=== PATIENT | male | born 1980 | race African-American/Black ===

== ENCOUNTER 2018-05-20 08:51 | Emergency (ER) | payer MEDICAID ==
[~2018-05-20] VITALS: Ht 182.9 cm; Wt 131.5 kg
[2018-05-20] MEDS ORDERED: UNOBMED (09:02)
[2018-05-20 09:06] VITALS: BP 135/80
--- NOTE | 2018-05-20 09:35 | Emergency Room Report ---
History of Present Illness General Chief Complaint: Pain Source: Patient Present Illness HPI Patient is a 38-year-old male presented after increased right lower extremity pain. Patient denies any recent injuries. 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 He reports having increased pain to the posterior right thigh. He denies recent trauma. He reports having prior history of hypertension. Pain was described as a sharp pain. He is worse with standing position. He denies any back pain.Patient had onset of symptoms 1 day ago. Allergies: Coded Allergies: No Known Allergies (Unverified , 05/20/18) Patient History Past Medical History: see triage record Reviewed Nursing Documentation: PMH: Agreed; PSxH: Agreed Nursing Documentation-PMH Past Medical History: No History, Except For Hx Hypertension: Yes Review of Systems All Other Systems: negative except mentioned in HPI Physical Exam Vital Signs Date Time Temp Pulse Resp B/P (MAP) Pulse Ox O2 Delivery O2 Flow Rate FiO2 05/20/18 08:59 99.1 97 19 140/82 98 05/20/18 09:06 Room Air General Appearance: well appearing, no apparent distress, alert, GCS 15, obese Head: normocephalic, atraumatic Eyes: bilateral eye other - disconjugate gaze ENT: hearing grossly normal, normal voice Neck: full range of motion, supple Respiratory: no respiratory distress, speaking full sentences Cardiovascular #1: normal peripheral pulses, regular rate, rhythm, no edema Gastrointestinal: normal inspection, non tender, soft Musculoskeletal: no calf tenderness, other - tenderness to right hamstring without skin changes or significant swelling Neurologic: normal inspection, alert, oriented x3, responsive, normal gait, other - disconjugate gaze Psychiatric: normal inspection, mood/affect normal Skin: no rash Medical Decision Making Diagnostic Impression: Primary Impression: Hamstring muscle strain ER Course Patient presented for right-sided thigh pain. Differential diagnosis include was not limited to fracture, bone cyst, hamstring injury among others. Because of complexity of patient's case imaging studies were ordered. The duplex ultrasound of the right lower extremity showed no evidence of acute DVT. X-ray imaging of the right femur showed normal bony alignment without evident fracture patient is given prescription for pain indications. He is advised to follow-up with his primary care physician for further evaluation.. Last Vital Signs Date Time Temp Pulse Resp B/P (MAP) Pulse Ox O2 Delivery O2 Flow Rate FiO2 05/20/18 09:06 98.5 78 20 135/80 98 Room Air Status: improved Disposition: HOME, SELF-CARE Condition: Stable Scripts Ibuprofen* (MOTRIN*) 600 Mg Tablet 600 MG ORAL Q8H PRN for For Pain, #30 TAB 0 Refills Prov: Cornelio Rolon MD 05/20/18 Referrals: NON PHYSICIAN (PCP) Cornelio Rolon MD May 20, 2018 09:35
--- NOTE | 2018-05-20 10:34 | Diagnostic Imaging Report ---
EXAM: XR Right Femur, 2 Views CLINICAL HISTORY: PAIN TECHNIQUE: Frontal and lateral views of the right femur. COMPARISON: No relevant prior studies available. FINDINGS: Bones/joints: Unremarkable. No visible displaced fracture. No dislocation. No osseous erosions. Visualized joint spaces appear unremarkable. Soft tissues: Unremarkable. IMPRESSION: Unremarkable right femur x-rays.
--- NOTE | 2018-05-20 11:50 | Diagnostic Imaging Report ---
EXAM: US Duplex Right Lower Extremity Veins CLINICAL HISTORY: PAIN TECHNIQUE: Real-time duplex ultrasound scan of the right lower extremity veins integrating B-mode two-dimensional vascular structure, Doppler spectral analysis, color flow Doppler imaging and compression. COMPARISON: No relevant prior studies available. FINDINGS: Deep veins: Unremarkable. No DVT in the visualized common femoral, superficial femoral, or popliteal veins. The veins demonstrate normal color flow, are normally compressible, with normal phasic flow and/or augmentation response. Superficial veins: Unremarkable. No thrombus in the visualized great saphenous vein. Soft tissues: No popliteal cyst. IMPRESSION: No evidence of DVT in the visualized venous segments of the right lower extremity.
[2018-05-20] MEDS ORDERED: IBUPROFEN600 MG ORAL (11:58)
[2018-05-20 12:05] VITALS: BP 130/85
== END 2018-05-20 12:05 | disposition home or self-care (01) ==
LOC: EMR 09:25
DX: S76.311A Strain of muscle, fascia and tendon of the posterior muscle group at thigh level, right thigh, initial encounter (principal); X58.XXXA Exposure to other specified factors, initial encounter; Y92.512 Supermarket, store or market as the place of occurrence of the external cause; Y99.0 Civilian activity done for income or pay; I10 Essential (primary) hypertension
CPT/HCPCS: 93971; 99284

== ENCOUNTER 2018-05-22 10:29 | Emergency (ER) | payer MEDICAID ==
[~2018-05-22] VITALS: Ht 182.9 cm; Wt 136.1 kg
[~2018-05-22 10:29] MED LIST: IBUPROFEN600 MG ORAL; UNOBMED
--- NOTE | 2018-05-22 10:31 | NUR ---
ED Nurse Note: Pt came into the Er w/ complaints of back pain since Tuesday. Pt is rating the pain a 10/10. Non radiating. Pt denies trauma. Pt was here on Tuesday for rt leg pain and was given motrin as prescription. A + o x4. Skin warm to touch.
[2018-05-22 10:33] VITALS: BP 120/70
--- NOTE | 2018-05-22 10:51 | NUR ---
ED Nurse Note: Pt went for MRI.
--- NOTE | 2018-05-22 11:12 | Emergency Room Report ---
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 [employer] Reports that in the morning time on Tuesday he had increased discomfort to that area denies any loss of control of bowel or urination Denies any chest pain or shortness of breath denies any other fall or trauma Allergies: Coded Allergies: No Known Allergies (Unverified , 05/20/18) Patient History Past Medical History: see triage record Pertinent Family History: none Reviewed Nursing Documentation: PMH: Agreed; PSxH: Agreed Nursing Documentation-PMH Hx Hypertension: Yes Review of Systems All Other Systems: negative except mentioned in HPI Physical Exam Vital Signs Date Time Temp Pulse Resp B/P (MAP) Pulse Ox O2 Delivery O2 Flow Rate FiO2 05/22/18 10:32 98.2 99 18 121/69 95 Room Air Sp02 EP Interpretation: reviewed, normal General Appearance: no apparent distress Head: normocephalic, atraumatic Eyes: bilateral eye other - amblyopia ENT: normal pharynx Neck: supple Respiratory: lungs clear, no respiratory distress, no retraction, no accessory muscle use Cardiovascular #1: regular rate, rhythm, no edema Gastrointestinal: non tender, soft Musculoskeletal: other - Patient is able to ambulate patient is able to leg raise bilaterally, sensory is intact,, he feels that while he is standing and walking increased discomfort into the right buttock and leg area Neurologic: alert, oriented x3, responsive Skin: normal color, no rash Medical Decision Making Diagnostic Impression: Primary Impression: Back pain Additional Impression: Radiculopathy ER Course Given the patient's history exam and presentation Given the patient's complaints MRI imaging was obtained for the patient there is evidence of impingement and abnormality involving the lower lumbar spine At this time patient does not show any signs of end organ injury, no signs of cauda equina Sensory is intact and the patient is ambulatory on my examination He does require however urgent follow-up with specialty follow-up This was discussed with the patient and the person who describes himself as family member who had given the patient here and who picked him up CT/MRI/US Diagnostic Results CT/MRI/US Diagnostic Results : Impression l-spine MRIIMPRESSION: Large central to right paracentral broad-based disc extrusion at L5-S1 compressing and displacing the traversing right S1 nerve root (which appears edematous and enlarged) and abutting the left S1 nerve root. Moderate right neural foraminal stenosis also demonstrated at this level. Small posterior central to right paracentral disc extrusion with superior subligamentous extension at L4-5. Abutting of the right traversing L5 nerve root noted. Last Vital Signs Date Time Temp Pulse Resp B/P (MAP) Pulse Ox O2 Delivery O2 Flow Rate FiO2 05/22/18 10:33 98.2 77 22 120/70 98 Room Air Status: improved Disposition: HOME, SELF-CARE Condition: Improved Scripts Acetaminophen With Codeine (T#3) (TYLENOL #3 TAB*) Y Tab 1 TAB ORAL Q8H PRN for For Pain, #12 TAB Prov: JesusдмитрийCourtney 05/22/18 Ibuprofen* (MOTRIN*) 600 Mg Tablet 600 MG ORAL Q8H PRN for For Pain, #20 TAB 0 Refills Prov: JesusдмитрийCourtney 05/22/18 Methylprednisolone (Methylprednisolone*) 4MG Dspk 4 MG ORAL DIRECTED for 6 Days, #21 EA 0 Refills Day 1: Two tablets before breakfast, one after lunch, one after dinner, and two at bedtime. If started late in the day, take all six tablets at once or divide into two or three doses, unless otherwise directed by prescriber. 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 Please note that this report is being documented using [employer] technology. This can lead to erroneous entry secondary to incorrect interpretation by the dictating instrument. Courtney Napier DO May 22, 2018 11:12
--- NOTE | 2018-05-22 11:39 | NUR ---
ED Nurse Note: Pt back from MRI.
--- NOTE | 2018-05-22 12:30 | Diagnostic Imaging Report ---
Indication: Back pain Technique: MRI examination of the lumbar spine was performed in a 1.5 Elvia magnet. Sequences obtained include sagittal and axial T1 and T2 fast spin echo, and sagittal STIR. Comparison: none Findings: There is a large right paracentral disc herniation, likely extrusion at L5-S1 compressing the traversing right S1 nerve root which is moderately displaced posteriorly. The S1 nerve root is edematous and enlarged secondary to the compression. There is also moderate narrowing of the right neural foramen. Please correlate clinically for right L5 compression. The disc herniation has a somewhat broad base and there is abutting of the left traversing S1 nerve root which does not appear edematous or displaced. Mild desiccation of the intervertebral disc signal noted. There is a small central to slightly right paracentral disc extrusion at L4-5. Part of the disc extends superiorly in a subligamentous location. There is slight abutting of the right traversing L5 nerve root. There is no foraminal stenosis. Mild loss of intervertebral disc signal noted. The L1-2, L2-3, L3-4 levels appear normal. Bone marrow signal normal. There is no malalignment. The visualized part of the distal spinal cord at T11 and T12 appear unremarkable. Conus medullaris is seen at L1. No paravertebral or paraspinous soft tissue abnormalities are identified. IMPRESSION: Large central to right paracentral broad-based disc extrusion at L5-S1 compressing and displacing the traversing right S1 nerve root (which appears edematous and enlarged) and abutting the left S1 nerve root. Moderate right neural foraminal stenosis also demonstrated at this level. Small posterior central to right paracentral disc extrusion with superior subligamentous extension at L4-5. Abutting of the right traversing L5 nerve root noted.
[2018-05-22] MEDS ORDERED: ACETAMINOPHEN-1 EAC1 ORAL (12:52)
[2018-05-22] MEDS ORDERED: IBUPROFEN600 MG ORAL (12:52)
[2018-05-22] MEDS ORDERED: MEDROL DOSEPAK4 MG ORAL (12:52)
[2018-05-22 13:02] VITALS: BP 125/77
--- NOTE | 2018-05-22 13:02 | NUR ---
ER DISCHARGE NOTE: Patient is cleared to be discharged per ERMD, pt is aox4, on room air, with stable vital signs. pt was given dc and prescription instructions, pt was able to verbalize understanding, pt id band removed without complications. pt is able to ambulate with steady gait. pt took all belongings.
== END 2018-05-22 13:02 | disposition home or self-care (01) ==
LOC: EMR 11:00
DX: M51.16 Intervertebral disc disorders with radiculopathy, lumbar region (principal); I10 Essential (primary) hypertension
CPT/HCPCS: 72148; 99284